=== PATIENT | female | born 1970 | race Caucasian/White ===

== ENCOUNTER 2017-08-19 18:14 | Emergency (ER) | payer BC ==
[2017-08-19 19:09] LABS: BASOPHILS 0 % (0-2); EOSINOPHILS 0 % (0-7); HEMATOCRIT 40.8 % (36.0-48.0); HEMOGLOBIN 13.5 g/dL (12-16); IMMATURE GRANULOCYTES 0.2 % (0-5); LYMPHOCYTES 34.6 % (15-50); MCH 26.5 pg (26.0-34.0); MCHC 33.1 g/dL (31.0-37.0); MEAN PLATELET VOLUME 9.7 fL (7.4-10.4); MONOCYTES 6.3 % (2-11); NEUTROPHILS 58.9 % (40-80); PLATELET COUNT 157 10x3/uL (130-400); RDW 14.8 % (11.5-14.5)
[2017-08-19 19:16] LABS: ALBUMIN 3.6 g/dL (3.4-5.0); ALKALINE PHOSPHATASE 65 U/L (46-116); ALT (SGPT) 20 U/L (10-68); CALC OSMOLALITY 283 mosm/kg (275-300); CALCIUM 9.6 mg/dL (8.5-10.1); CARBON DIOXIDE 28.9 mmol/L (21.0-32.0); CHLORIDE - SERUM 106 mmol/L (98-107); CREATININE - SERUM 1.2 mg/dL (0.6-1.3); GLUCOSE 95 mg/dL (74-106); POTASSIUM - SERUM 3.7 mmol/L (3.5-5.1); PROTEIN - SERUM 6.7 g/dL (6.4-8.2); SODIUM 142 mmol/L (136-145); UREA NITROGEN 16 mg/dL (7-18); eGFR NON AFRICAN AMERICAN 51 mL/min (90-120)
[2017-08-19 19:30] LABS: CKMB 1.9 U/L (0.0-3.6); CREATINE KINASE 117 UL (21-215); TROPONIN-I < 0.017 ng/mL (0.000-0.060)
== END 2017-08-19 19:56 | disposition home or self-care (01) ==
LOC: D.ER 18:14
PROVIDERS: Family Medicine
DX: R07.89 Other chest pain (principal); F41.9 Anxiety disorder, unspecified

== ENCOUNTER 2017-08-31 13:53 | Emergency (ER) | payer BC ==
[~2017-08-31] VITALS: Ht 167.6 cm; Wt 90.9 kg
[2017-08-31 14:18] VITALS: Ht 167.6 cm; Wt 90.9 kg
[2017-08-31] MEDS ORDERED: EFFEXOR XR150 MG PO (14:21)
[2017-08-31] MEDS ORDERED: ULTRAM50 MG PO (14:21)
[2017-08-31] MEDS ORDERED: MAGNESIUM OXID250 MG PO (14:22)
[2017-08-31 15:48] LABS: BASOPHILS 0 % (0-2); EOSINOPHILS 0.1 % (0-7); HEMATOCRIT 42.6 % (36.0-48.0); HEMOGLOBIN 14.4 g/dL (12-16); IMMATURE GRANULOCYTES 0.3 % (0-5); LYMPHOCYTES 14.6 % (15-50); MCH 26.7 pg (26.0-34.0); MCHC 33.8 g/dL (31.0-37.0); MCV 78.9 fL (80.0-100.0); MEAN PLATELET VOLUME 10.6 fL (7.4-10.4); MONOCYTES 6.7 % (2-11); NEUTROPHILS 78.3 % (40-80); PLATELET COUNT 177 10x3/uL (130-400); RDW 14.5 % (11.5-14.5); WBC 10.2 10x3/uL (4.8-10.8)
[2017-08-31 16:17] LABS: ALBUMIN 3.6 g/dL (3.4-5.0); ALKALINE PHOSPHATASE 64 U/L (46-116); ALT (SGPT) 24 U/L (10-68); CALC OSMOLALITY 283 mosm/kg (275-300); CALCIUM 9.4 mg/dL (8.5-10.1); CARBON DIOXIDE 26.4 mmol/L (21.0-32.0); CHLORIDE - SERUM 104 mmol/L (98-107); CREATININE - SERUM 0.9 mg/dL (0.6-1.3); GLUCOSE 109 mg/dL (74-106); POTASSIUM - SERUM 3.7 mmol/L (3.5-5.1); PROTEIN - SERUM 6.7 g/dL (6.4-8.2); SODIUM 141 mmol/L (136-145); UREA NITROGEN 17 mg/dL (7-18); eGFR NON AFRICAN AMERICAN 71 mL/min (90-120)
[2017-08-31 16:29] LABS: CKMB 4.9 U/L (0.0-3.6); CREATINE KINASE 174 UL (21-215); TROPONIN-I < 0.017 ng/mL (0.000-0.060)
[2017-08-31 16:38] LABS: APPEARANCE CLEAR (CLEAR); BILIRUBIN NEGATIVE (NEGATIVE); COLOR YELLOW (YELLOW); GLUCOSE NEGATIVE (NEGATIVE); KETONE NEGATIVE (NEGATIVE); NITRITE NEGATIVE (NEGATIVE); PROTEIN NEGATIVE (NEGATIVE); UROBILINOGEN NORMAL (NORMAL)
[2017-08-31 16:47] LABS: UDS - AMPHET NEGATIVE QUAL (NEGATIVE); UDS - BARB NEGATIVE QUAL (NEGATIVE); UDS - BENZO NEGATIVE QUAL (NEGATIVE); UDS - COCAINE NEGATIVE QUAL (NEGATIVE); UDS - OPIATE NEGATIVE QUAL (NEGATIVE); UDS - PCP NEGATIVE QUAL (NEGATIVE); UDS - THC POSITIVE QUAL (NEGATIVE)
[2017-08-31 20:27] VITALS: BP 135/73
== END 2017-08-31 20:19 | disposition home or self-care (01) ==
LOC: D.ER 13:53
PROVIDERS: Family Medicine
DX: F22 Delusional disorders (principal); R45.1 Restlessness and agitation; F17.200 Nicotine dependence, unspecified, uncomplicated; Z86.59 Personal history of other mental and behavioral disorders

== ENCOUNTER 2017-09-04 10:02 | Emergency (ER) | payer BC ==
[~2017-09-04] VITALS: Ht 167.6 cm; Wt 87.7 kg
[~2017-09-04 10:02] MED LIST: EFFEXOR XR150 MG PO; MAGNESIUM OXID250 MG PO; ULTRAM50 MG PO
[2017-09-04 10:07] VITALS: Ht 167.6 cm; Wt 87.7 kg
[2017-09-04 10:33] LABS: HCG URINE NEGATIVE (NEGATIVE)
[2017-09-04 10:39] LABS: UDS - AMPHET NEGATIVE QUAL (NEGATIVE); UDS - BARB NEGATIVE QUAL (NEGATIVE); UDS - BENZO NEGATIVE QUAL (NEGATIVE); UDS - COCAINE NEGATIVE QUAL (NEGATIVE); UDS - OPIATE POSITIVE QUAL (NEGATIVE); UDS - PCP NEGATIVE QUAL (NEGATIVE); UDS - THC POSITIVE QUAL (NEGATIVE)
[2017-09-04 10:43] LABS: APPEARANCE CLEAR (CLEAR); BILIRUBIN NEGATIVE (NEGATIVE); COLOR YELLOW (YELLOW); GLUCOSE NEGATIVE (NEGATIVE); KETONE MODERATE mg/dL (NEGATIVE); NITRITE NEGATIVE (NEGATIVE); PROTEIN NEGATIVE (NEGATIVE); UROBILINOGEN NORMAL (NORMAL)
[2017-09-04 10:59] LABS: BASOPHILS 0 % (0-2); EOSINOPHILS 0 % (0-7); HEMOGLOBIN 13.9 g/dL (12-16); IMMATURE GRANULOCYTES 0.3 % (0-5); LYMPHOCYTES 26.8 % (15-50); MCH 26.8 pg (26.0-34.0); MCHC 33.9 g/dL (31.0-37.0); MCV 79.2 fL (80.0-100.0); MEAN PLATELET VOLUME 9.7 fL (7.4-10.4); MONOCYTES 8.4 % (2-11); NEUTROPHILS 64.5 % (40-80); PLATELET COUNT 165 10x3/uL (130-400); RBC 5.18 10x6/uL (4.00-5.40); RDW 14.6 % (11.5-14.5); WBC 6.4 10x3/uL (4.8-10.8)
[2017-09-04 11:26] LABS: ALBUMIN 3.7 g/dL (3.4-5.0); ANION GAP 11.1 mmol/L (8-16); BILIRUBIN - TOTAL 0.49 mg/dL (0.2-1.3); CALCIUM 9.3 mg/dL (8.5-10.1); CARBON DIOXIDE 31.2 mmol/L (21.0-32.0); CREATININE - SERUM 1.1 mg/dL (0.6-1.3); POTASSIUM - SERUM 3.3 mmol/L (3.5-5.1); PROTEIN - SERUM 6.4 g/dL (6.4-8.2)
[2017-09-04 16:42] VITALS: BP 151/70
== END 2017-09-04 18:41 ==
LOC: D.ER 10:02
PROVIDERS: Family Medicine
DX: F22 Delusional disorders (principal); R45.1 Restlessness and agitation; F17.200 Nicotine dependence, unspecified, uncomplicated